=== PATIENT | male | born 2000 | race Two or more races ===

== ENCOUNTER 2022-06-19 00:18 | Emergency (ER) | payer OTHER ==
[~2022-06-19] VITALS: Ht 172.7 cm; Wt 77.0 kg
[2022-06-19 00:18] VITALS: BP 126/84
== END 2022-06-19 00:49 | disposition left against medical advice (07) ==
LOC: ER 00:18
DX: R07.89 Other chest pain (principal); Z53.21 Procedure and treatment not carried out due to patient leaving prior to being seen by health care provider